=== PATIENT | female | born 1990 | race Caucasian/White ===

== ENCOUNTER 2016-12-29 02:58 | Inpatient (IN) | payer BC ==
[2016-12-29] MEDS: Lactated Ringers 1,000 ML IV SCH ×3 (03:20→05:26)
[2016-12-29] MEDS ORDERED: Misoprostol 400 MCG (4 X 100 MCG TAB) RECTAL PRN (03:45)
[2016-12-29] MEDS ORDERED: Sodium Chloride 0.9% 10 ML Syringe FLUSH PRN ×2 (03:45→09:01)
[2016-12-29] MEDS ORDERED: Lactated Ringers 500 ML IV ONE (03:45)
[2016-12-29] MEDS ORDERED: Methylergonovine 0.2 MG/1 ML Amp IM PRN (03:45)
[2016-12-29] MEDS ORDERED: Lidocaine 1% 30 ML SDV INJECT PRN (03:45)
[2016-12-29] MEDS ORDERED: Carboprost Tromethamine 250 MCG/1 ML Amp IM PRN ×2 (03:45→09:01)
[2016-12-29] MEDS ORDERED: Ondansetron 4 MG/2 ML SDV IV PRN (03:45)
[2016-12-29] MEDS ORDERED: Oxytocin/Normal Saline 30 UNIT/500 ML BAG IV SCH (04:00)
--- NOTE | 2016-12-29 04:00 | PCM.LDHP ---
<Tiffany Khan - Last Filed: 12/29/16 03:51> L&D History of Present Illness - General Date of Service: 12/29/16 Admit Problem/Dx: Patient Status Order with Admit Dx/Problem 12/29/16 03:45 Patient Status [ADT] Routine Admission Diagnosis/Problem Admission Diagnosis/Problem Source of Information: Patient History Limitations: Reports: No limitations - History of Present Illness Introduction:: Jelena is a pleasant at 37 and 3 that presents 10 hours S/P membrane stripping. She did not some spotting post membrane stripping but denies SROM. Per chart review baby was vertex in clinic 12/28/16. Jelena reports contractions being severe enough to waker her up at approximately 0100 12/29/16. Her and her Eliecer drove to [place] at this time from their home [place] of [place]. She reports contractions about every 2 minutes and that they are about a 7 out 10 on the pain scale. SVE per unit nurse was 5/75/-2, posterior position. Timing/Duration: Reports: seconds: (contractions 80 seconds long every 2-3 minutes) Location, : Reports: Pelvic Severity: moderate Pain Score: 7 Associated Symptoms: Reports: vaginal bleeding (some spotting post membrane rupture). Denies: vaginal discharge, vaginal fluid - Related Data Allergies/Adverse Reactions: Allergies Allergy/AdvReac Type Severity Reaction Status Date / Time No Known Allergies Allergy Verified 12/29/16 04:04 Home Medications: Home Meds Ferrous Sulfate [Iron] 325 mg PO DAILY 11/20/15 [History] Pnv95/Iron Fum/Folic Acid [ Caplet] 1 tab PO DAILY 11/20/15 [History] Past Medical History HEENT History: Reports: Impaired vision, Other (see below) Other HEENT History: wears glasses Cardiovascular History: Reports: None Respiratory History: Reports: None Gastrointestinal History: Reports: None MS SQL DBA History: Reports: , Other (see below) : 3 Para: 2 LMP (Approximate): Other OB/BYN History: hx BV Musculoskeletal History: Reports: None Neurological History: Reports: None Psychiatric History: Reports: None Endocrine/Metabolic History: Reports: None Hematologic History: Reports: Anemia Dermatologic History: Reports: Other (see below) Other Dermatologic History: breast biopsy - Infectious Disease History Infectious Disease History: Reports: Chicken pox - Past Surgical History Cardiovascular Surgical History: Reports: None GI Surgical History: Reports: None Female Surgical History: Reports: Breast biopsy (benign, also had an axilla biopsy) Social & Family History - Family History Family Medical History: Noncontributory Musculoskeletal: Reports: Osteoporosis (mother) Endocrine/Metabolic: Reports: Diabetes, type II (MGF) Oncologic: Reports: Breast (MGM and PGM), Prostate (PGF) - Tobacco Use Smoking Status *Q: Never Smoker Second Hand Smoke Exposure: No - Caffeine Use Caffeine Use: Reports: None - Alcohol Use Alcohol Use History: No - Recreational Drug Use Recreational Drug Use: No - Living Situation & Occupation Living situation: Reports: Social History Comment: in February 2012. [place] [place] 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 He is from [place] [place] She is from [place] and they met at a wedding in [place]. His mother is IVANA in [place] [place]he knows Romina from [employer] in [place] They are delighted to be . Both nonsmokers. No alcohol or drug abuse. [facility], and perhaps some of her OB visits. [facility] 06-10-12. Update: Melissa Orellana born 01[birth year]17. [facility]. Update: Melissa Orellana born: [birth year]. b. 07-04-16 Expecting next child: 01-02-17 [facility] H&P Review of Systems - Review of Systems: Review Of Systems: See Below General: Denies: fever, chills HEENT: Reports: no symptoms Pulmonary: Denies: Shortness of Breath, Wheezing, Cough Cardiovascular: Reports: no symptoms. Denies: chest pain Gastrointestinal: Denies: Abdominal pain (Other than contractions), Nausea, Vomiting Genitourinary: Reports: no symptoms Musculoskeletal: Reports: no symptoms Skin: Reports: no symptoms Psychiatric: Reports: no symptoms Neurological: Reports: No Symptoms Hematologic/Lymphatic: Reports: no symptoms Immunologic: Reports: no symptoms L&D Exam - Exam Exam: See Below - Vital Signs Weight: 68.492 kg - OB Specific Contraction Intensity: Moderate movement: active heart tones: present heart tones per min: 140 Heart Rate (FHR) Variability: Moderate (6-25 bmp) - Exam General: alert, oriented, cooperative HEENT: Conjunctiva clear, Mucosa moist & pink, Pupils equal Neck: supple Lungs: Clear to auscultation, Normal respiratory effort Cardiovascular: regular rate, regular rhythm Abdomen: normal bowel sounds, soft Rectal Exam: Deferred Genitourinary: Deferred Back Exam: normal inspection Extremities: normal inspection. No: edema Skin: warm, dry, intact Psychiatric: alert, normal affect - Patient Data Lab Results last 24 hrs: Laboratory Results - last 24 hr 12/29/16 Range/Units 03:20 WBC 15.5 H (5.0-10.0) 10^3/uL RBC 3.95 L (4.2-5.4) 10^6/uL Hgb 11.9 L (12.0-16.0) g/dL Hct 34.9 L (37.0-47.0) % MCV 88.4 (80-100) fL MCH 30.1 (27.0-34.0) pg MCHC 34.1 (33.0-35.0) g/dL Plt Count 189 (150-450) 10^3/uL Result Diagrams: 12/29/16 03:20 - Problem List (1) History of chicken pox SNOMED Code(s): 880721996 ICD Code: Z86.19 - PERSONAL HISTORY OF OTHER INFECTIOUS AND PARASITIC DISEASES Status: Acute Current Visit: Yes (2) SNOMED Code(s): 63701497 ICD Code: Z33.1 - STATE, INCIDENTAL Status: Acute Current Visit : Yes Qualifiers: Weeks of gestation: 39 weeks Qualified Code(s): Z3A.39 - 39 weeks gestation of (3) Blood type A- SNOMED Code(s): 299180469 ICD Code: Z67.11 - TYPE A BLOOD, RH NEGATIVE Status: Acute Current Visit : No (4) Rubella immune SNOMED Code(s): 642595431 ICD Code: Z78.9 - OTHER SPECIFIED HEALTH STATUS Status: Acute Current Visit: No Problem List Initiated/Reviewed/Updated: Yes Orders Last 24hrs: Active Orders 24 hr Category Date Time Status Patient Status [ADT] Routine ADT 12/29/16 03:45 Ordered Communication Order [RC] ASDIRECTED Care 12/29/16 03:45 Ordered Heart Tones [RC] PER UNIT ROUTINE Care 12/29/16 03:45 Ordered Notify Provider Vital Signs OB [RC] ASDIRECTED Care 12/29/16 03:45 Ordered Notify Provider [RC] PRN Care 12/29/16 03:45 Ordered Pump Management, Intrathecal [RC] ASDIRECTED Care 12/29/16 03:45 Ordered Up ad Shannan [RC] ASDIRECTED Care 12/29/16 03:45 Ordered Vital Signs [RC] PER UNIT ROUTINE Care 12/29/16 03:45 Ordered Acetaminophen [Tylenol] Med 12/29/16 03:45 Ordered 650 mg PO Q4H PRN Carboprost Tromethamine [Hemabate DS] Med 12/29/16 03:45 Ordered 250 mcg IM ASDIRECTED PRN Lactated Ringers @ 125 MLS/HR(1000ml) Med 12/29/16 03:45 Ordered Lactated Ringers [Ringers, Lactated] 1,000 ml IV ASDIRECTED Lactated Ringers [Ringers, Lactated] 500 ml Med 12/29/16 03:45 Ordered IV .BOLUS Lidocaine 1% [Xylocaine-MPF 1%] Med 12/29/16 03:45 Ordered 10 ml INJECT ASDIRECTED PRN Methylergonovine [Methergine] Med 12/29/16 03:45 Ordered 0.2 mg IM ASDIRECTED PRN Misoprostol [Cytotec] Med 12/29/16 03:45 Ordered 800 mcg RECTAL ASDIRECTED PRN Ondansetron [Zofran] Med 12/29/16 03:45 Ordered 4 mg IV Q4H PRN Oxytocin/Normal Saline [Pitocin in NS 30 UNIT/500 ML] Med 12/29/16 04:00 Ordered 30 unit in 500 ml IV TITRATE Sodium Chloride 0.9% [Saline Flush] Med 12/29/16 03:45 Ordered 10 ml FLUSH ASDIRECTED PRN Saline Lock Insert [OM.PC] Routine Oth 12/29/16 03:45 Ordered Resuscitation Status Routine Resus Stat 12/29/16 03:45 Ordered Medication Orders Acetaminophen (Tylenol) 650 mg PO Q4H PRN PRN Reason: Pain (Mild 1-3) and fever Assessment/Plan Comment:: 1. Normal intrapartum cares per unit protocol, 2. Intrathecal PRN 3. AROM if needed <Christen Aragon - Last Filed: 12/29/16 07:59> L&D History of Present Illness - General Admit Problem/Dx: Patient Status Order with Admit Dx/Problem 12/29/16 03:45 Patient Status [ADT] Routine Admission Diagnosis/Problem Admission Diagnosis/Problem L&D Exam - Vital Signs Vital Signs: Last Vital Signs Temp 36.8 C 12/29/16 07:10 Pulse 80 12/29/16 07:20 Resp 16 12/29/16 07:01 BP 121/71 12/29/16 07:18 Pulse Ox 97 12/29/16 07:20 - Patient Data Lab Results last 24 hrs: Laboratory Results - last 24 hr 12/29/16 Range/Units 03:20 WBC 15.5 H (5.0-10.0) 10^3/uL RBC 3.95 L (4.2-5.4) 10^6/uL Hgb 11.9 L (12.0-16.0) g/dL Hct 34.9 L (37.0-47.0) % MCV 88.4 (80-100) fL MCH 30.1 (27.0-34.0) pg MCHC 34.1 (33.0-35.0) g/dL Plt Count 189 (150-450) 10^3/uL Result Diagrams: 12/29/16 03:20 Orders Last 24hrs: Active Orders 24 hr Category Date Time Status Patient Status [ADT] Routine ADT 12/29/16 03:45 Active Communication Order [RC] ASDIRECTED Care 12/29/16 03:45 Active Notify Provider Vital Signs OB [RC] ASDIRECTED Care 12/29/16 03:45 Active Notify Provider [RC] PRN Care 12/29/16 03:45 Active Pump Management, Intrathecal [RC] ASDIRECTED Care 12/29/16 03:45 Active Up ad Shannan [RC] ASDIRECTED Care 12/29/16 03:45 Active Vital Signs [RC] PER UNIT ROUTINE Care 12/29/16 03:45 Active Acetaminophen [Tylenol] Med 12/29/16 03:45 Active 650 mg PO Q4H PRN Carboprost Tromethamine [Hemabate DS] Med 12/29/16 03:45 Active 250 mcg IM ASDIRECTED PRN Lactated Ringers [Ringers, Lactated] 1,000 ml Med 12/29/16 03:45 Active IV ASDIRECTED Lidocaine 1% [Xylocaine-MPF 1%] Med 12/29/16 03:45 Active 10 ml INJECT ASDIRECTED PRN Methylergonovine [Methergine] Med 12/29/16 03:45 Active 0.2 mg IM ASDIRECTED PRN Misoprostol [Cytotec] Med 12/29/16 03:45 Active 800 mcg RECTAL ASDIRECTED PRN Ondansetron [Zofran] Med 12/29/16 03:45 Active 4 mg IV Q4H PRN Oxytocin/Normal Saline [Pitocin in NS 30 UNIT/500 ML] Med 12/29/16 04:00 Active 30 unit in 500 ml IV TITRATE Sodium Chloride 0.9% [Saline Flush] Med 12/29/16 03:45 Active 10 ml FLUSH ASDIRECTED PRN Saline Lock Insert [OM.PC] Routine Oth 12/29/16 03:45 Ordered Resuscitation Status Routine Resus Stat 12/29/16 03:45 Ordered Medication Orders Acetaminophen (Tylenol) 650 mg PO Q4H PRN PRN Reason: Pain (Mild 1-3) and fever Carboprost Tromethamine (Hemabate Ds) 250 mcg IM ASDIRECTED PRN PRN Reason: HEMORRHAGE Lactated Ringer's (Ringers, Lactated) 1,000 mls @ 125 mls/hr IV ASDIRECTED CAPO Last Admin: 12/29/16 05:26 Dose: 125 mls/hr Infusion: 12/29/16 05:26 Dose: 125 mls/hr Admin: 12/29/16 04:39 Dose: 125 mls/hr Infusion: 12/29/16 04:39 Dose: 125 mls/hr Admin: 12/29/16 03:20 Dose: 125 mls/hr Oxytocin/Sodium Chloride (Pitocin In Ns 30 Unit/500 Ml) 30 unit in 500 mls @ 500 mls/hr IV TITRATE CAPO; 500 MUNITS/MIN PRN Reason: Protocol Lidocaine HCl (Xylocaine-Mpf 1%) 10 ml INJECT ASDIRECTED PRN PRN Reason: Perineal Repair Methylergonovine Maleate (Methergine) 0.2 mg IM ASDIRECTED PRN PRN Reason: Hemorrhage Misoprostol (Cytotec) 800 mcg RECTAL ASDIRECTED PRN PRN Reason: Hemorrhage Ondansetron HCl (Zofran) 4 mg IV Q4H PRN PRN Reason: Nausea/Vomiting Last Admin: 12/29/16 04:39 Dose: 4 mg Sodium Chloride (Saline Flush) 10 ml FLUSH ASDIRECTED PRN PRN Reason: Keep Vein Open Assessment/Plan Comment:: Agree with student assessment and plan. Anticipate vaginal delivery. Patient is also Rh negative so will need to have Rhogam Christen Aragon MD
--- NOTE | 2016-12-29 09:00 | PCM.DEL ---
L & D Note - General Info Date of Service: 12/29/16 Mother's Due Date: 01/02/17 - Delivery Note Labor: spontaneous, augmented by ARM Delivery Outcome: Livebirth Delivery Method: Spontaneous Vaginal Delivery Presentation: Left Occiput Anterior (ELSA) Nuchal cord: none Anesthesia Type: Intrathecal Amniotic Fluid Description: Clear Episiotomy Type: None Laceration: none Placenta: intact, spontaneous Estimated blood loss: 175 Resuscitation needed: No [place]: stimulated, warmed Score 1 min: 7 Score 5 min: 8 Delivery Comments (Free Text/Narrative):: 26-year-old female, now , presented at 39w3d with contractions that work her from sleep around 0100 today. Her contractions continued to increase in frequency and intensity. Membranes were artificially ruptured around 0700 to augment labor. She progressed to complete dilation. After pushing for about 20 minutes, she delivered a viable male infant, weighing 7 lb 8 oz, with Apgars of 7 and 8 at 1 and 5 minutes respectively. Placenta delivered spontaneously a short time later. Placenta appeared to be intact, and a 3 vessel cord was noted. Perineum was noted to be intact. Uterus was firm, and bleeding was noted to be appropriate. There were no complications. - Patient Data Vitals - most recent: Last Vital Signs Temp 36.8 C 12/29/16 07:10 Pulse 72 12/29/16 07:46 Resp 16 12/29/16 07:01 BP 125/68 12/29/16 07:46 Pulse Ox 97 12/29/16 07:30 Weight - most recent: 68.492 kg I&O - last 24 hours: Intake & Output 12/28/16 12/29/16 12/29/16 22:59 06:59 14:59 Intake Total 1999 Balance 1999 Lab Results last 24 hrs: Laboratory Results - last 24 hr 12/29/16 Range/Units 03:20 WBC 15.5 H (5.0-10.0) 10^3/uL RBC 3.95 L (4.2-5.4) 10^6/uL Hgb 11.9 L (12.0-16.0) g/dL Hct 34.9 L (37.0-47.0) % MCV 88.4 (80-100) fL MCH 30.1 (27.0-34.0) pg MCHC 34.1 (33.0-35.0) g/dL Plt Count 189 (150-450) 10^3/uL Med Orders - Current: Current Medications Acetaminophen (Tylenol) 650 mg PO Q4H PRN PRN Reason: Pain (Mild 1-3) and fever Carboprost Tromethamine (Hemabate Ds) 250 mcg IM ASDIRECTED PRN PRN Reason: HEMORRHAGE Lactated Ringer's (Ringers, Lactated) 1,000 mls @ 125 mls/hr IV ASDIRECTED CAPO Last Admin: 12/29/16 05:26 Dose: 125 mls/hr Oxytocin/Sodium Chloride (Pitocin In Ns 30 Unit/500 Ml) 30 unit in 500 mls @ 500 mls/hr IV TITRATE CAPO; 500 MUNITS/MIN PRN Reason: Protocol Last Admin: 12/29/16 08:55 Dose: 500 munits/min, 500 mls/hr Lidocaine HCl (Xylocaine-Mpf 1%) 10 ml INJECT ASDIRECTED PRN PRN Reason: Perineal Repair Methylergonovine Maleate (Methergine) 0.2 mg IM ASDIRECTED PRN PRN Reason: Hemorrhage Misoprostol (Cytotec) 800 mcg RECTAL ASDIRECTED PRN PRN Reason: Hemorrhage Ondansetron HCl (Zofran) 4 mg IV Q4H PRN PRN Reason: Nausea/Vomiting Last Admin: 12/29/16 04:39 Dose: 4 mg Sodium Chloride (Saline Flush) 10 ml FLUSH ASDIRECTED PRN PRN Reason: Keep Vein Open Discontinued Medications Lactated Ringer's (Ringers, Lactated) 500 mls @ 999 mls/hr IV .BOLUS ONE Stop: 12/29/16 04:15 Last Admin: 12/29/16 06:19 Dose: Not Given - Problem List & Annotations (1) SNOMED Code(s): 33680465 Code(s): Z33.1 - STATE, INCIDENTAL Status: Acute Current Visit: Yes Qualifiers: Weeks of gestation: 39 weeks Qualified Code(s): Z3A.39 - 39 weeks gestation of (2) Vaginal delivery SNOMED Code(s): 541081617 Code(s): O80 - ENCOUNTER FOR FULL-TERM UNCOMPLICATED DELIVERY Status: Acute Current Visit: Yes (3) Blood type A- SNOMED Code(s): 193756856 Code(s): Z67.11 - TYPE A BLOOD, RH NEGATIVE Status: Acute Current Visit: No (4) Mother currently breast-feeding SNOMED Code(s): 611834923 Code(s): TFC0190 - Status: Acute Current Visit: No - Problem List Review Problem List Initiated/Reviewed/Updated: Yes - Assessment Assessment:: 26-year-old, now , status post normal spontaneous vaginal delivery - Plan Plan:: 1. Initiate routine cares 2. Patient plans to breastfeed 3. Anticipate discharge 12/31/16 Christen Aragon MD
[2016-12-29] MEDS ORDERED: Benzocaine/Menthol 20%-0.5% Spray 56 GM Canister TOP PRN (09:01)
[2016-12-29] MEDS ORDERED: Simethicone 80 MG Tab.Chew PO PRN (09:01)
[2016-12-29] MEDS: Docusate Sodium 100 MG Cap PO PRN ×2 (12:44→19:49)
[2016-12-29] MEDS: Ibuprofen 800 MG Tab PO PRN ×2 (12:45→23:48)
[2016-12-29] MEDS: Acetaminophen 325 MG Tab PO PRN (17:59)
[2016-12-30] MEDS: Acetaminophen 325 MG Tab PO PRN (05:36)
[2016-12-30] MEDS ORDERED: Prenatal Multivitamin with Calcium/Folic Acid/Iron Tab PO SCH (09:00)
[2016-12-30] MEDS: Docusate Sodium 100 MG Cap PO PRN (10:22)
--- NOTE | 2016-12-30 11:29 | PCM.DCSUM1 ---
[id number] Text/Narrative:: Jelena is a now that has had an uncomplicated hospital course. HPI Initial Comments: Jelena is a pleasant at 37 and 3 that presented on 12/29/16 10 hours S/P membrane stripping. She did not some spotting post membrane stripping but denies SROM. Per chart review baby was vertex in clinic 12/28/16. Her and her Eliecer will [place] to [place]. - Discharge Data Discharge Date: 12/30/16 Discharge Disposition: Home, Self-Care 01 Condition: Good - Discharge Diagnosis/Problem(s) (1) History of chicken pox SNOMED Code(s): 590552485 ICD Code: Z86.19 - PERSONAL HISTORY OF OTHER INFECTIOUS AND PARASITIC DISEASES Status: Acute Current Visit: Yes (2) SNOMED Code(s): 35744191 ICD Code: Z33.1 - STATE, INCIDENTAL Status: Acute Current Visit : Yes Qualifiers: Weeks of gestation: 39 weeks Qualified Code(s): Z3A.39 - 39 weeks gestation of (3) Blood type A- SNOMED Code(s): 696847613 ICD Code: Z67.11 - TYPE A BLOOD, RH NEGATIVE Status: Acute Current Visit : No (4) Rubella immune SNOMED Code(s): 002167190 ICD Code: Z78.9 - OTHER SPECIFIED HEALTH STATUS Status: Acute Current Visit: No (5) Vaginal delivery SNOMED Code(s): 599069543 ICD Code: O80 - ENCOUNTER FOR FULL-TERM UNCOMPLICATED DELIVERY Status: Acute Current Visit: Yes (6) Mother currently breast-feeding SNOMED Code(s): 422558756 ICD Code: RRC7849 - Status: Acute Current Visit: No - Patient Summary/Data Consults: Consultations 12/29/16 09:01 Consult to Retail Planning Manager [CONS] Routine - Patient Instructions Diet: Usual Diet as Tolerated Activity: Apply Ice, As Tolerated, No Strenuous Activities (pelvic rest for 6 weeks) Driving: May Drive Today Showering/Bathing: May Shower Notify Provider of: Fever, Increased Pain, Nausea and/or Vomiting - Discharge Plan Home Medications: Home Meds Ferrous Sulfate [Iron] 325 mg PO DAILY 11/20/15 [History] Pnv95/Iron Fum/Folic Acid [ Caplet] 1 tab PO DAILY 11/20/15 [History] Acetaminophen [Tylenol] 650 mg PO Q4H PRN #0 tablet 12/30/16 [Rx] Docusate Sodium [Colace] 100 mg PO BID PRN #0 cap 12/30/16 [Rx] Ibuprofen [IJD: Ibuprofen] 800 mg PO Q8H PRN #0 tablet 12/30/16 [Rx] Patient Handouts: , Home Care Instructions for Mom - General Info Date of Service: 12/30/16 Admission Dx/Problem (Free Text: Patient Status Order with Admit Dx/Problem (1) History of chicken pox SNOMED Code(s): 516111517 ICD Code: Z86.19 - PERSONAL HISTORY OF OTHER INFECTIOUS AND PARASITIC DISEASES Status: Acute Current Visit: Yes (2) SNOMED Code(s): 87861206 ICD Code: Z33.1 - STATE, INCIDENTAL Status: Acute Current Visit : Yes Qualifiers: Weeks of gestation: 39 weeks Qualified Code(s): Z3A.39 - 39 weeks gestation of (3) Blood type A- SNOMED Code(s): 340434187 ICD Code: Z67.11 - TYPE A BLOOD, RH NEGATIVE Status: Acute Current Visit : No (4) Rubella immune SNOMED Code(s): 040802128 ICD Code: Z78.9 - OTHER SPECIFIED HEALTH STATUS Status: Acute Current Visit: No Problem List Initiated/Reviewed/Updated: Yes Orders Last 24hrs: Subjective Update: Patient reports she has been doing well overnight, She has been able to get up and ambulate, urinate and pass gas. SHe has no questions, and reports that she does not believe her milk has come in quite yet but breast feeding has been going okay. She would like to be discharged to home today12/30/16. Functional Status: Reports: pain controlled, tolerating diet, ambulating, urinating - Review of Systems General: Reports: No Symptoms. Denies: Fever, Chills HEENT: Reports: no symptoms Pulmonary: Reports: no symptoms. Denies: shortness of breath, cough, wheezing Cardiovascular: Reports: No Symptoms. Denies: Edema Gastrointestinal: Reports: No symptoms. Denies: Nausea, Vomiting Genitourinary: Reports: no symptoms Musculoskeletal: Reports: no symptoms Skin: Reports: no symptoms Neurological: Reports: No Symptoms Psychiatric: Reports: no symptoms - Patient Data Vitals - Most Recent: Last Vital Signs Temp 98 F 12/29/16 20:00 Pulse 69 12/29/16 20:00 Resp 20 12/29/16 20:00 BP 113/59 L 12/29/16 20:00 Pulse Ox 98 12/29/16 20:00 Weight - Most Recent: 68.492 kg I&O - Last 24 hours: Intake & Output 12/29/16 12/30/16 12/30/16 22:59 06:59 14:59 Intake Total 1 Balance 1 Med Orders - Current: Current Medications Acetaminophen (Tylenol) 650 mg PO Q4H PRN PRN Reason: Pain (Mild 1-3) and fever Last Admin: 12/30/16 05:36 Dose: 650 mg Benzocaine/Menthol (Dermoplast Pain Relief [place]) 0 gm TOP Q4H PRN PRN Reason: Perineal comfort measures Last Admin: 12/29/16 12:44 Dose: 1 spr Carboprost Tromethamine (Hemabate Ds) 250 mcg IM ASDIRECTED PRN PRN Reason: HEMORRHAGE Carboprost Tromethamine (Hemabate Ds) 250 mcg IM ASDIRECTED PRN PRN Reason: Excessive vaginal bleeding Docusate Sodium (Colace) 100 mg PO BID PRN PRN Reason: Constipation Last Admin: 12/30/16 10:22 Dose: 100 mg Oxytocin/Sodium Chloride (Pitocin In Ns 30 Unit/500 Ml) 30 unit in 500 mls @ 500 mls/hr IV TITRATE CAPO; 500 MUNITS/MIN PRN Reason: Protocol Last Titration: 12/29/16 12:14 Dose: Infused Ibuprofen (Motrin) 800 mg PO Q8H PRN PRN Reason: Mild Pain or Fever Last Admin: 12/29/16 23:48 Dose: 800 mg Methylergonovine Maleate (Methergine) 0.2 mg IM ASDIRECTED PRN PRN Reason: Hemorrhage Misoprostol (Cytotec) 800 mcg RECTAL ASDIRECTED PRN PRN Reason: Hemorrhage Prenat Multivit/Plaster Foreman/Iron/Folic Ac ( Plus Iron) 1 each PO DAILY CAPO Last Admin: 12/30/16 10:22 Dose: 1 each Simethicone (Simethicone) 80 mg PO Q4H PRN PRN Reason: Gas Sodium Chloride (Saline Flush) 10 ml FLUSH ASDIRECTED PRN PRN Reason: Keep Vein Open Sodium Chloride (Saline Flush) 10 ml FLUSH ASDIRECTED PRN PRN Reason: Keep Vein Open Discontinued Medications Lactated Ringer's (Ringers, Lactated) 500 mls @ 999 mls/hr IV .BOLUS ONE Stop: 12/29/16 04:15 Last Admin: 12/29/16 06:19 Dose: Not Given Lactated Ringer's (Ringers, Lactated) 1,000 mls @ 125 mls/hr IV ASDIRECTED CAPO Last Admin: 12/29/16 05:26 Dose: 125 mls/hr Lidocaine HCl (Xylocaine-Mpf 1%) 10 ml INJECT ASDIRECTED PRN PRN Reason: Perineal Repair Ondansetron HCl (Zofran) 4 mg IV Q4H PRN PRN Reason: Nausea/Vomiting Last Admin: 12/29/16 04:39 Dose: 4 mg - Exam General: Reports: alert, oriented, cooperative HEENT: Reports: Pupils equal, EOMI, Mucous membr. moist/pink Lungs: Reports: Clear to auscultation, Normal respiratory effort Cardiovascular: Reports: Regular Rate, Regular Rhythm Abdomen: Reports: bowel sounds present, soft, no distension (Female) Exam: Deferred Rectal (Female) Exam: Deferred Back Exam: Reports: normal inspection, full range of motion Extremities: Reports: no edema, normal pulses, no calf tenderness. Denies: edema Skin: Reports: warm, dry, intact Wound/Incisions: Reports: healing well Neurological: Reports: no new focal deficit Psy/Mental Status: Reports: alert, normal affect, normal mood *Q Meaningful Use (DIS) - VTE *Q VTE Criteria *Q: - Stroke *Q Stroke Criteria *Q: - AMI *Q AMI Criteria *Q: <Christen Aragon - Last Filed: 12/30/16 11:50> Discharge Summary - Patient Summary/Data Consults: Consultations 12/29/16 09:01 Consult to Retail Planning Manager [CONS] Routine - Discharge Summary/Plan Comment Discharge Summary/Plan Comment: Agree with student assessment and plan. Patient is doing very well. No concerns. Will need to follow-up with Dr. Rowland or myself in 6 weeks for visit. Christen Aragon MD - Patient Data Vitals - Most Recent: Last Vital Signs Temp 36.6 C 12/29/16 20:00 Pulse 69 12/29/16 20:00 Resp 20 12/29/16 20:00 BP 113/59 L 12/29/16 20:00 Pulse Ox 98 12/29/16 20:00 I&O - Last 24 hours: Intake & Output 12/29/16 12/30/16 12/30/16 22:59 06:59 14:59 Intake Total 1 Balance 1 Med Orders - Current: Current Medications Acetaminophen (Tylenol) 650 mg PO Q4H PRN PRN Reason: Pain (Mild 1-3) and fever Last Admin: 12/30/16 05:36 Dose: 650 mg Benzocaine/Menthol (Dermoplast Pain Relief [place]) 0 gm TOP Q4H PRN PRN Reason: Perineal comfort measures Last Admin: 12/29/16 12:44 Dose: 1 spr Carboprost Tromethamine (Hemabate Ds) 250 mcg IM ASDIRECTED PRN PRN Reason: HEMORRHAGE Carboprost Tromethamine (Hemabate Ds) 250 mcg IM ASDIRECTED PRN PRN Reason: Excessive vaginal bleeding Docusate Sodium (Colace) 100 mg PO BID PRN PRN Reason: Constipation Last Admin: 12/30/16 10:22 Dose: 100 mg Oxytocin/Sodium Chloride (Pitocin In Ns 30 Unit/500 Ml) 30 unit in 500 mls @ 500 mls/hr IV TITRATE CAPO; 500 MUNITS/MIN PRN Reason: Protocol Last Titration: 12/29/16 12:14 Dose: Infused Ibuprofen (Motrin) 800 mg PO Q8H PRN PRN Reason: Mild Pain or Fever Last Admin: 12/29/16 23:48 Dose: 800 mg Methylergonovine Maleate (Methergine) 0.2 mg IM ASDIRECTED PRN PRN Reason: Hemorrhage Misoprostol (Cytotec) 800 mcg RECTAL ASDIRECTED PRN PRN Reason: Hemorrhage Prenat Multivit/[place]/Iron/Folic Ac ( Plus Iron) 1 each PO DAILY CAPO Last Admin: 12/30/16 10:22 Dose: 1 each Simethicone (Simethicone) 80 mg PO Q4H PRN PRN Reason: Gas Sodium Chloride (Saline Flush) 10 ml FLUSH ASDIRECTED PRN PRN Reason: Keep Vein Open Sodium Chloride (Saline Flush) 10 ml FLUSH ASDIRECTED PRN PRN Reason: Keep Vein Open Discontinued Medications Lactated Ringer's (Ringers, Lactated) 500 mls @ 999 mls/hr IV .BOLUS ONE Stop: 12/29/16 04:15 Last Admin: 12/29/16 06:19 Dose: Not Given Lactated Ringer's (Ringers, Lactated) 1,000 mls @ 125 mls/hr IV ASDIRECTED CAPO Last Admin: 12/29/16 05:26 Dose: 125 mls/hr Lidocaine HCl (Xylocaine-Mpf 1%) 10 ml INJECT ASDIRECTED PRN PRN Reason: Perineal Repair Ondansetron HCl (Zofran) 4 mg IV Q4H PRN PRN Reason: Nausea/Vomiting Last Admin: 12/29/16 04:39 Dose: 4 mg *Q Meaningful Use (DIS) - VTE *Q VTE Criteria *Q: - Stroke *Q Stroke Criteria *Q: - AMI *Q AMI Criteria *Q:
[2016-12-30 16:56] VITALS: BP 110/65
== END 2016-12-30 14:20 | disposition home or self-care (01) | DRG 560 ==
LOC: DL.OBCHECK 02:58 → DL.OB 03:19 → INTOOBSV 03:45 → OBSVTOIN 03:45 → DL.OB 08:44 → OBSVTOIN 08:44
PROVIDERS: ADMIT Family Medicine; ATTEND Family Medicine
PROC: 10E0XZZ Delivery of Products of Conception, External Approach (ICD-10-PCS; principal; 2016-12-29)
PROC: 10907ZC Drainage of Amniotic Fluid, Therapeutic from Products of Conception, Via Natural or Artificial Opening (ICD-10-PCS; 2016-12-29)
PROC: 00HU33Z Insertion of Infusion Device into Spinal Canal, Percutaneous Approach (ICD-10-PCS; 2016-12-29)
PROC: 3E0R3CZ (ICD-10-PCS; 2016-12-29)
DX: O99.02 Anemia complicating childbirth (principal); D64.9 Anemia, unspecified; Z3A.39 39 weeks gestation of pregnancy; Z37.0 Single live birth
CPT/HCPCS: 36415; 85027; 85461; 86850; 86900; 86901; A9270-GY; J2405; J2590; J2790; J7120

== ENCOUNTER 2019-11-21 11:21 | Inpatient (IN) | payer BC ==
[2019-11-21] MEDS ORDERED: Tranexamic Acid 1,000 MG in Sodium Chloride 0.9% 100 ML IV PRN (21:04)
[2019-11-21] MEDS ORDERED: Lactated Ringers 1,000 ML IV ONE (21:04)
[2019-11-21] MEDS ORDERED: Misoprostol 400 MCG (4 X 100 MCG TAB) RECTAL PRN (21:04)
[2019-11-21] MEDS ORDERED: Carboprost Tromethamine 250 MCG/1 ML Amp IM PRN (21:04)
[2019-11-21] MEDS ORDERED: Ondansetron 4 MG/2 ML SDV IVPUSH PRN (21:04)
[2019-11-21] MEDS ORDERED: Methylergonovine 0.2 MG/1 ML Amp IM PRN (21:04)
[2019-11-21] MEDS ORDERED: Sodium Chloride 0.9% 10 ML Syringe FLUSH PRN (21:04)
[2019-11-21] MEDS ORDERED: Lidocaine 1% 30 ML SDV INJECT PRN (21:04)
[2019-11-21] MEDS ORDERED: Oxytocin/Normal Saline 30 UNIT/500 ML BAG IV SCH (21:15)
[2019-11-21] MEDS ORDERED: hydrOXYzine HCl 25 MG Tab PO PRN (22:27)
--- NOTE | 2019-11-22 08:41 | PCM.LDHP ---
L&D History of Present Illness - General Date of Service: 11/21/19 (admit H&P) Admit Problem/Dx: Patient Status Order with Admit Dx/Problem 11/21/19 21:05 Patient Status [ADT] Routine Admission Diagnosis/Problem Admission Diagnosis/Problem Labor established Source of Information: Patient, Family, Old Records, Provider, Other ( records, EPIC episode. ) History Limitations: Reports: No Limitations - History of Present Illness Introduction:: Delightful 29yo WF @ 39w6d in with onset cxns every 4-5 minutes. no bleeding or LOF. seen in clinic Saturday with cervix 2cm. see notes for details. expecting a girl this time. no other new concerns or sx of pre-eclampsia. GBS negative. blood type A negative. hmb Timing/Duration: Reports: minutes: (4-5), gradual onset Location, : Reports: Uterus Severity: Moderate (mild to moderate) Improves with: Reports: Movement Worsens with: Reports: None - Related Data Allergies/Adverse Reactions: Allergies Allergy/AdvReac Type Severity Reaction Status Date / Time No Known Allergies Allergy Verified 11/21/19 20:32 Home Medications: Home Meds Ferrous Sulfate [Iron] 325 mg PO DAILY 11/20/15 [History] Pnv95/Iron Fum/Folic Acid [ Caplet] 1 tab PO DAILY 11/20/15 [History] Past Medical History HEENT History: Reports: Impaired Vision Other HEENT History: wears glasses Cardiovascular History: Reports: None Respiratory History: Reports: None Gastrointestinal History: Reports: None Genitourinary History: Reports: None 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: Other OB/BYN History: hx BV Musculoskeletal History: Reports: None Neurological History: Reports: None Psychiatric History: Reports: None Endocrine/Metabolic History: Reports: None Hematologic History: Reports: Anemia Immunologic History: Reports: None Oncologic (Cancer) History: Reports: None Dermatologic History: Reports: None Other Dermatologic History: breast biopsy - Infectious Disease History Infectious Disease History: Reports: Chicken Pox - Past Surgical History Head Surgeries/Procedures: Reports: None Cardiovascular Surgical History: Reports: None Respiratory Surgical History: Reports: None GI Surgical History: Reports: None Female Surgical History: Reports: Breast Biopsy (fibroadenoma) Endocrine Surgical History: Reports: None Neurological Surgical History: Reports: None Musculoskeletal Surgical History: Reports: None Oncologic Surgical History: Reports: None Dermatological Surgical History: Reports: None Social & Family History - Family History Family Medical History: Noncontributory Musculoskeletal: Reports: Osteoporosis Endocrine/Metabolic: Reports: Diabetes, type II Oncologic: Reports: Breast, Prostate - Tobacco Use Smoking Status *Q: Never Smoker Second Hand Smoke Exposure: No - Caffeine Use Caffeine Use: Reports: None - Alcohol Use Alcohol Use History: No Alcohol Use in Last Twelve Months: No - Recreational Drug Use Recreational Drug Use: No - Sexual History Sexual History: Reports: Sexually Active, Single Partner, Vaginal [place] - Living Situation & Occupation Living situation: Reports: , with Family Social History Comment: Lives with Eliecer, children Rivers 6, Eve 4, Shadi 2. 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 b H&P Review of Systems - Review of Systems: Review Of Systems: Comprehensive ROS is negative, except as noted in HPI. L&D Exam - Exam Exam: See Below - Vital Signs Vital Signs: Last Vital Signs Temp 98.7 F 11/22/19 00:30 Pulse 90 11/22/19 00:30 Resp 16 11/22/19 00:30 BP 113/63 11/22/19 00:30 Pulse Ox Weight: 157 lb - OB Specific Contraction Duration (sec): 90-100 Contraction Frequency (min): 9-10 Contraction Intensity: Mild Movement: Active Heart Tones: Present Heart Tones per Min: 140 Heart Rate (FHR) Variability: Moderate (6-25 bmp) Presentation: Right Occiput Anterior (ARTUR) - Phillips Score Phillips Score Cervix Position: Posterior Phillips Score Consistency: Soft Phillips Score Effacement: >80% Phillips Score Dilation: 3-4 cm Phillips Score Infant's Station: -3 Phillips Score Total: 7 - Exam General: Alert, Oriented HEENT: Conjunctiva Clear, EOMI, Hearing Intact, Nares Patent, Pupils Equal, Pupils Reactive Neck: Trachea Midline Lungs: Clear to Auscultation, Normal Respiratory Effort Cardiovascular: Regular Rate, Regular Rhythm GI/Abdominal Exam: Normal Bowel Sounds, Soft, Non-Tender, No Organomegaly, No Distention, No Abnormal Bruit, No Mass, Pelvis Stable Rectal Exam: Normal Exam Genitourinary: Normal external exam, Normal bimanual exam, Cervical dilitation, Other (exam on admit as noted: 4+cm, BOWI, posterior, -2/-3, 80%) Back Exam: Normal Inspection, Full Range of Motion Extremities: Normal Inspection, Normal Range of Motion, Non-Tender, No Pedal Edema, Normal Capillary Refill Skin: Warm, Dry, Intact Neurological: Cranial Nerves Intact, Reflexes Equal Bilateral Psychiatric: Alert, Normal Affect, Normal Mood - Patient Data Lab Results Last 24 hrs: ordered and pending - Problem List (1) Term SNOMED Code(s): 97358943 ICD Code: Z34.90 - ENCNTR FOR SUPRVSN OF NORMAL , UNSP, UNSP TRIMESTER Status: Acute Current Visit: Yes (2) Labor established SNOMED Code(s): 56536301 ICD Code: ZJQ5856 - Status: Acute Current Visit: Yes (3) Group B Streptococcus not isolated SNOMED Code(s): 796416679 ICD Code: RVQ6121 - Status: Acute Current Visit: Yes (4) Blood type A- SNOMED Code(s): 504082955 ICD Code: Z67.11 - TYPE A BLOOD, RH NEGATIVE Status: Acute Current Visit : No (5) Rubella immune SNOMED Code(s): 553851549 ICD Code: Z78.9 - OTHER SPECIFIED HEALTH STATUS Status: Acute Current Visit: No Problem List Initiated/Reviewed/Updated: Yes Orders Last 24hrs: Active Orders 24 hr Category Date Time Status Patient Status [ADT] Routine ADT 11/21/19 21:05 Active Communication Order [RC] ASDIRECTED Care 11/21/19 21:05 Active Notify Provider Vital Signs OB [RC] ASDIRECTED Care 11/21/19 21:05 Active Notify Provider [RC] PRN Care 11/21/19 21:05 Active POC Labs [RC] ASDIRECTED Care 11/21/19 21:05 Active Pump Management, Intrathecal [RC] ASDIRECTED Care 11/21/19 21:08 Active Up ad Shannan [RC] ASDIRECTED Care 11/21/19 21:05 Active Vital Signs [RC] PER UNIT ROUTINE Care 11/21/19 21:05 Active CBC W/O DIFF,HEMOGRAM [HEME] Routine Lab 11/21/19 21:05 Ordered Acetaminophen [Tylenol] Med 11/21/19 21:04 Active 650 mg PO Q4H PRN Carboprost Tromethamine [Hemabate DS] Med 11/21/19 21:04 Active 250 mcg IM ASDIRECTED PRN Lactated Ringers [Ringers, Lactated] 1,000 ml Med 11/21/19 21:15 Active IV ASDIRECTED Lidocaine 1% [Xylocaine-MPF 1%] Med 11/21/19 21:04 Active 30 ml INJECT ASDIRECTED PRN Methylergonovine [Methergine] Med 11/21/19 21:04 Active 0.2 mg IM ASDIRECTED PRN Ondansetron [Zofran] Med 11/21/19 21:04 Active 4 mg IVPUSH Q4H PRN Oxytocin/Normal Saline [Pitocin in NS 30 UNIT/500 ML] Med 11/21/19 21:15 Active 30 unit in 500 ml IV TITRATE Sodium Chloride 0.9% [Saline Flush] Med 11/21/19 21:04 Active 10 ml FLUSH ASDIRECTED PRN Tranexamic Acid [Cyklokapron] 1,000 mg Med 11/21/19 21:04 Active Sodium Chloride 0.9% [Normal Saline] 100 ml IV ONETIME hydrOXYzine HCL [Atarax] Med 11/21/19 22:27 Active 50 mg PO BEDTIME PRN miSOPROStoL [Cytotec] Med 11/21/19 21:04 Active 800 mcg RECTAL ASDIRECTED PRN Saline Lock Insert [OM.PC] Routine Oth 11/21/19 21:05 Ordered Resuscitation Status Routine Resus Stat 11/21/19 21:04 Ordered Medication Orders Acetaminophen (Tylenol) 650 mg PO Q4H PRN PRN Reason: Pain (Mild 1-3) and fever Carboprost Tromethamine (Hemabate Ds) 250 mcg IM ASDIRECTED PRN PRN Reason: HEMORRHAGE Hydroxyzine HCl (Atarax) 50 mg PO BEDTIME PRN PRN Reason: Sleep Lactated Ringer's (Ringers, Lactated) 1,000 mls @ 125 mls/hr IV ASDIRECTED CAPO Oxytocin/Sodium Chloride (Pitocin In Ns 30 Unit/500 Ml) 30 unit in 500 mls @ 2 mls/hr IV TITRATE CAPO; Protocol Tranexamic Acid 1,000 mg/ (Sodium Chloride) 110 mls @ 660 mls/hr IV ONETIME PRN PRN Reason: Bleeding Lidocaine HCl (Xylocaine-Mpf 1%) 30 ml INJECT ASDIRECTED PRN PRN Reason: Perineal Repair Methylergonovine Maleate (Methergine) 0.2 mg IM ASDIRECTED PRN PRN Reason: Hemorrhage Misoprostol (Cytotec) 800 mcg RECTAL ASDIRECTED PRN PRN Reason: Hemorrhage Ondansetron HCl (Zofran) 4 mg IVPUSH Q4H PRN PRN Reason: Nausea/Vomiting Sodium Chloride (Saline Flush) 10 ml FLUSH ASDIRECTED PRN PRN Reason: Keep Vein Open Assessment/Plan Comment:: Assessment: 29yo WF @ 39w6d labor established GBS negative Rubella immune A negative blood type reactive NST Plan: admit monitor closely Pt planning intrathecal when in more active labor. all questions answered. anticipate vaginal delivery. plans to breast feed and room in as much as possible. b
[2019-11-22] MEDS: Lactated Ringers 1,000 ML IV SCH ×3 (08:45→11:01)
--- NOTE | 2019-11-22 09:08 | PCM.SN ---
- Free Text/Narrative Note: DOS: 11-22-2019 Jelena is a delightful 29yo now 40w0d who was admitted last night with onset of labor continues with cxns every 4-8 minutes, mild to moderate. baby active. no bleeding or LOF noted slept on and off during night. FHT remain reassuring. On exam today cervix 7-8, posterior, -2 st BOWI, AROM carried out with return of clear fluid Shortly after AROM, contractions noted to be stronger already per patient report She wishes to proceed with intrathecal. PLT [phone] cxn with early decel--likely some head compression. continue with plan. hmb
[2019-11-22] MEDS ORDERED: fentaNYL 100 MCG/2 ML SDV ONE (09:37)
[2019-11-22] MEDS ORDERED: Sodium Bicarbonate 4.2% 2.5 MEQ/5 ML SDV ONE (09:38)
--- NOTE | 2019-11-22 10:01 | PCM.SN ---
- Free Text/Narrative Note: Intrathecal, Sitting position, sterile prep and drape. 1% lidocaine w bicarb for skinwheal to L2 L3 interspace, introducer, 24 ga pencan x 1. Pos CSF, neg heme, neg parasthesia. 20 mcg pf sufenta, 30 mcg pf fentanyl, 0.4 ml pf ns and 6 mg of 0.75% pf bupivacaine injected after CSF aspiration. Pt to L lateral position. Procedure time 3339 to 1000
--- NOTE | 2019-11-22 12:18 | PCM.DEL ---
L & D Note - General Info Date of Service: 11/22/19 (Time of Delivery: 1121) Mother's Due Date: 11/22/19 (40w0d) - Delivery Note Labor: Spontaneous, Augmented by Oxytocin Delivery Outcome: Livebirth Infant Delivery Method: Spontaneous Vaginal Delivery-Single Infant Delivery Mode: Spontaneous Presentation: Right Occiput Anterior (ARTUR) Nuchal Cord: None Anesthesia Type: Intrathecal Amniotic Fluid Description: Clear Episiotomy Type: None Laceration: None Placenta: Intact, Spontaneous Cord: 3 Vessels Estimated Blood Loss: 200 (minimal) Resuscitation Needed: No : Bulb Syringe, Stimulated Provider: Ivet Rowland Score 1 min: 9 Score 5 min: 9 Second Stage Interventions: Reports: Encouragement Given, Laboring Down, Pushing Effectively, Pushing, Feet in Foot Rests Delivery Comments (Free Text/Narrative):: Jelena was feeling more pressure, and early decels noted with cxns. Intrathecal working well and not feeling pain with cxns. pushed effectively and vertex . set up for delivery. vertex delivered, with one contraction of pushing, and hand noted at neck. rest of baby delivered easily with strong cry at . baby girl delivered to mother's chest for immediate skin to skin contact and nursing. cord doubly clamped and cut by me. 3VC, cord blood sample obtained. perineum intact. placenta delivered easily and is complete/intact with central insertion. pitocin infusing per protocol fundus firm. EBL <200 no complications. APGARs 9 & 9 wieght: 3200g/ 7lb 1oz. mom and baby doing well. routine and nursery orders and cares. all questions answered family happy with care and plan. b - General Info Date of Service: 11/22/19 (40w0d) - Review of Systems General: Reports: No Symptoms HEENT: Reports: No Symptoms Pulmonary: Reports: No Symptoms Cardiovascular: Reports: No Symptoms Gastrointestinal: Reports: No Symptoms Genitourinary: Reports: No Symptoms Musculoskeletal: Reports: No Symptoms Skin: Reports: No Symptoms Neurological: Reports: No Symptoms Psychiatric: Reports: No Symptoms - Patient Data Vitals - Most Recent: Last Vital Signs Temp 98.7 F 11/22/19 00:30 Pulse 90 11/22/19 00:30 Resp 16 11/22/19 00:30 BP 113/63 11/22/19 00:30 Pulse Ox Weight - Most Recent: 157 lb Lab Results Last 24 Hours: Laboratory Results - last 24 hr 11/22/19 Range/Units 08:55 WBC 10.7 H (5.0-10.0) 10^3/uL RBC 3.79 L (4.2-5.4) 10^6/uL Hgb 11.8 L (12.0-16.0) g/dL Hct 34.2 L (37.0-47.0) % MCV 90.2 (80-100) fL MCH 31.1 (27.0-34.0) pg MCHC 34.5 (33.0-35.0) g/dL Plt Count 239 (150-450) 10^3/uL Med Orders - Current: Current Medications Acetaminophen (Tylenol) 650 mg PO Q4H PRN PRN Reason: Pain (Mild 1-3) and fever Carboprost Tromethamine (Hemabate Ds) 250 mcg IM ASDIRECTED PRN PRN Reason: HEMORRHAGE Hydroxyzine HCl (Atarax) 50 mg PO BEDTIME PRN PRN Reason: Sleep Lactated Ringer's (Ringers, Lactated) 1,000 mls @ 125 mls/hr IV ASDIRECTED CAPO Last Admin: 11/22/19 11:01 Dose: 999 mls/hr Oxytocin/Sodium Chloride (Pitocin In Ns 30 Unit/500 Ml) 30 unit in 500 mls @ 2 mls/hr IV TITRATE CAPO; Protocol Tranexamic Acid 1,000 mg/ (Sodium Chloride) 110 mls @ 660 mls/hr IV ONETIME PRN PRN Reason: Bleeding Lidocaine HCl (Xylocaine-Mpf 1%) 30 ml INJECT ASDIRECTED PRN PRN Reason: Perineal Repair Methylergonovine Maleate (Methergine) 0.2 mg IM ASDIRECTED PRN PRN Reason: Hemorrhage Misoprostol (Cytotec) 800 mcg RECTAL ASDIRECTED PRN PRN Reason: Hemorrhage Ondansetron HCl (Zofran) 4 mg IVPUSH Q4H PRN PRN Reason: Nausea/Vomiting Last Admin: 11/22/19 09:36 Dose: 4 mg Sodium Chloride (Saline Flush) 10 ml FLUSH ASDIRECTED PRN PRN Reason: Keep Vein Open Discontinued Medications Fentanyl (Sublimaze) Confirm Administered Dose 100 mcg .ROUTE .STK-MED ONE Stop: 11/22/19 09:38 Last Admin: 11/22/19 10:53 Dose: Not Given Lactated Ringer's (Ringers, Lactated) 1,000 mls @ 500 mls/hr IV BOLUS ONE Stop: 11/21/19 23:03 Sodium Bicarbonate (Sodium Bicarbonate 4.2%) Confirm Administered Dose 2.5 meq .ROUTE .STK-MED ONE Stop: 11/22/19 09:39 Last Admin: 11/22/19 10:53 Dose: Not Given Sufentanil Citrate (Sufenta) Confirm Administered Dose 50 mcg .ROUTE .STK-MED ONE Stop: 11/22/19 09:39 Last Admin: 11/22/19 10:53 Dose: Not Given - Problem List & Annotations (1) Term SNOMED Code(s): 36983681 Code(s): Z34.90 - ENCNTR FOR SUPRVSN OF NORMAL , UNSP, UNSP TRIMESTER Status: Acute Current Visit: Yes (2) Labor established SNOMED Code(s): 68140081 Code(s): PJQ8727 - Status: Acute Current Visit: Yes (3) Group B Streptococcus not isolated SNOMED Code(s): 737435597 Code(s): EPC2283 - Status: Acute Current Visit: Yes (4) Blood type A- SNOMED Code(s): 120787603 Code(s): Z67.11 - TYPE A BLOOD, RH NEGATIVE Status: Acute Current Visit: No (5) Rubella immune SNOMED Code(s): 777699150 Code(s): Z78.9 - OTHER SPECIFIED HEALTH STATUS Status: Acute Current Visit: No (6) History of chicken pox SNOMED Code(s): 456488099 Code(s): Z86.19 - PERSONAL HISTORY OF OTHER INFECTIOUS AND PARASITIC DISEASES Status: Acute Current Visit: No (7) Mother currently breast-feeding SNOMED Code(s): 626070952 Code(s): MNC8053 - Status: Acute Current Visit: No (8) SNOMED Code(s): 31122730 Code(s): Z33.1 - STATE, INCIDENTAL Status: Acute Current Visit: No Qualifiers: Weeks of gestation: 39 weeks Qualified Code(s): Z3A.39 - 39 weeks gestation of (9) Vaginal delivery SNOMED Code(s): 900051706 Code(s): O80 - ENCOUNTER FOR FULL-TERM UNCOMPLICATED DELIVERY Status: Acute Current Visit: No - Problem List Review Problem List Initiated/Reviewed/Updated: Yes - My Orders Last 24 Hours: My Active Orders 11/21/19 21:04 Acetaminophen [Tylenol] 650 mg PO Q4H PRN Carboprost Tromethamine [Hemabate DS] 250 mcg IM ASDIRECTED PRN Lidocaine 1% [Xylocaine-MPF 1%] 30 ml INJECT ASDIRECTED PRN Methylergonovine [Methergine] 0.2 mg IM ASDIRECTED PRN Ondansetron [Zofran] 4 mg IVPUSH Q4H PRN Sodium Chloride 0.9% [Saline Flush] 10 ml FLUSH ASDIRECTED PRN Tranexamic Acid [Cyklokapron] 1,000 mg Sodium Chloride 0.9% [Normal Saline] 100 ml IV ONETIME miSOPROStoL [Cytotec] 800 mcg RECTAL ASDIRECTED PRN Resuscitation Status Routine 11/21/19 21:05 Patient Status [ADT] Routine Communication Order [RC] ASDIRECTED Notify Provider Vital Signs OB [RC] ASDIRECTED Notify Provider [RC] PRN POC Labs [RC] ASDIRECTED Up ad Shannan [RC] ASDIRECTED Vital Signs [RC] ,20 Saline Lock Insert [OM.PC] Routine 11/21/19 21:08 Pump Management, Intrathecal [RC] ASDIRECTED 11/21/19 21:15 Lactated Ringers [Ringers, Lactated] 1,000 ml IV ASDIRECTED Oxytocin/Normal Saline [Pitocin in NS 30 UNIT/500 ML] 30 unit in 500 ml IV TITRATE 11/21/19 22:27 hydrOXYzine HCL [Atarax] 50 mg PO BEDTIME PRN - Plan Plan:: Assessment: 29yo WF @ 39w6d labor established GBS negative Rubella immune A negative blood type reactive NST Plan: admit monitor closely Pt planning intrathecal when in more active labor. all questions answered. anticipate vaginal delivery. plans to breast feed and room in as much as possible. hmb Delivery: over intact perineum @ 1121 on 11-22-2019 viable female 7lb 1oz/ 3200g APGARs 9 & 9 immediately to mother's chest for skin to skin contact and nursing. EBL <200 hmb
[2019-11-22] MEDS ORDERED: Zolpidem 5 MG Tab PO PRN (12:23)
[2019-11-22] MEDS ORDERED: Simethicone 80 MG Tab.Chew PO PRN (12:23)
[2019-11-22] MEDS ORDERED: Benzocaine/Menthol 20%-0.5% Spray 56 GM Canister TOP PRN (12:23)
[2019-11-22] MEDS ORDERED: Oxytocin/Normal Saline 30 UNIT/500 ML BAG IV SCH (14:00)
[2019-11-22] MEDS ORDERED: Sodium Chloride 0.9% 10 ML Syringe IV ONE (14:59)
[2019-11-22] MEDS ORDERED: fentaNYL 100 MCG/2 ML SDV IV ONE (14:59)
[2019-11-22] MEDS ORDERED: Sodium Bicarbonate 4.2% 2.5 MEQ/5 ML SDV IV ONE (14:59)
[2019-11-22] MEDS ORDERED: Lidocaine 1% 30 ML SDV INJECT ONE (14:59)
[2019-11-22] MEDS: Ibuprofen 800 MG Tab PO PRN ×2 (16:09→23:29)
[2019-11-22] MEDS: Docusate Sodium 100 MG Cap PO PRN (21:22)
[2019-11-22] MEDS: Acetaminophen 325 MG Tab PO PRN (21:23)
[2019-11-23] MEDS: Acetaminophen 325 MG Tab PO PRN ×2 (06:48→12:32)
[2019-11-23] MEDS: Ibuprofen 800 MG Tab PO PRN (08:46)
[2019-11-23] MEDS: Docusate Sodium 100 MG Cap PO PRN (08:49)
[2019-11-23] MEDS ORDERED: Prenatal Multivitamin with Calcium/Folic Acid/Iron Tab PO SCH (09:00)
[2019-11-23 09:32] VITALS: BP 107/50; PULSE 70
--- NOTE | 2019-11-23 14:17 | PCM.DCSUM1 ---
Discharge Summary - Hospital Course Free Text/Narrative:: Jelena is a delightful 29yo G4 now P4 who presented in early labor with cervical change and was subsequently admitted. @ 40 weeks gestation, her cervix had dilated to 7+cm, and a bulging BOW noted, AROM carried out with return of clear fluid. Contractions increased and she requested intrathecal, which was placed ithout difficulty. low dose pitocin started and increased to 4, with good labor/contraction pattern developing. she went on to deliver a viable female over intact perineum wiwthout complication. baby to mom's chest. apgars 9 & 9 weight 3200g/7lb 1oz EBL < 200cc nursing. HPI Initial Comments: as above. Brief History: as above. see notes in EPIC and episode. admission H&P and delivery note. Diagnosis: Stroke: No - Discharge Data Discharge Date: 11/23/19 (discharge day, PPD #1) Discharge Disposition: Home, Self-Care 01 Condition: Good - Referral to Home Health Primary Care Physician: Ivet Rowland MD - Discharge Diagnosis/Problem(s) (1) Term SNOMED Code(s): 31134479 ICD Code: Z34.90 - ENCNTR FOR SUPRVSN OF NORMAL , UNSP, UNSP TRIMESTER Status: Acute (2) Labor established SNOMED Code(s): 19744628 ICD Code: [id number] - Status: Acute (3) Group B Streptococcus not isolated SNOMED Code(s): 683136433 ICD Code: [id number] - Status: Acute (4) Blood type A- SNOMED Code(s): 158798421 ICD Code: Z67.11 - TYPE A BLOOD, RH NEGATIVE Status: Acute (5) Rubella immune SNOMED Code(s): 350672006 ICD Code: Z78.9 - OTHER SPECIFIED HEALTH STATUS Status: Acute (6) History of chicken pox SNOMED Code(s): 091644396 ICD Code: Z86.19 - PERSONAL HISTORY OF OTHER INFECTIOUS AND PARASITIC DISEASES Status: Acute (7) Mother currently breast-feeding SNOMED Code(s): 128012940 ICD Code: THX0014 - Status: Acute (8) SNOMED Code(s): 90812336 ICD Code: Z33.1 - STATE, INCIDENTAL Status: Acute Qualifiers: Weeks of gestation: 39 weeks Qualified Code(s): Z3A.39 - 39 weeks gestation of (9) Vaginal delivery SNOMED Code(s): 126227516 ICD Code: O80 - ENCOUNTER FOR FULL-TERM UNCOMPLICATED DELIVERY Status: Acute - Patient Summary/Data Consults: Consultations 11/22/19 12:23 Consult to Magnetometer Operator [CONS] Routine Hospital Course: course uneventful. A negative blood type, and baby's cord blood was O+, so Jelena received RhoGam high dose. Hgb >12 on admit, and minimal EBL with delivery, therefore hgb not repeated. . fundus firm, flow minimal. cramping with nursing. afebrile, VSS eating, voiding, ambulating well. Requesting discharge at 24 hours. Ready to go home. routine orders and instructions. follow up for 6 week check and sooner prn. hmb - Patient Instructions Diet: Usual Diet as Tolerated Activity: As Tolerated Driving: May Drive Today Showering/Bathing: May Shower Notify Provider of: Fever, Increased Pain, Swelling and Redness, Drainage, Nausea and/or Vomiting - Discharge Plan *PRESCRIPTION DRUG MONITORING PROGRAM REVIEWED*: Not Applicable *COPY OF PRESCRIPTION DRUG MONITORING REPORT IN PATIENT PASTOR: Not Applicable Home Medications: Home Meds Ferrous Sulfate [Iron] 325 mg PO DAILY 11/20/15 [History] Pnv95/Iron Fum/Folic Acid [ [place]] 1 tab PO DAILY 11/20/15 [History] Patient Handouts: Home Care Instructions for Mom - Discharge Summary/Plan Comment DC Time >30 min.: No - General Info Admission Dx/Problem (Free Text: Patient Status Order with Admit Dx/Problem 11/21/19 21:05 Patient Status [ADT] Routine Admission Diagnosis/Problem Admission Diagnosis/Problem Labor established Functional Status: Reports: Pain Controlled - Review of Systems General: Reports: No Symptoms HEENT: Reports: No Symptoms Pulmonary: Reports: No Symptoms Cardiovascular: Reports: No Symptoms Gastrointestinal: Reports: No Symptoms Genitourinary: Reports: No Symptoms Musculoskeletal: Reports: No Symptoms Skin: Reports: No Symptoms Neurological: Reports: No Symptoms Psychiatric: Reports: No Symptoms - Patient Data Vitals - Most Recent: Last Vital Signs Temp 98.5 F 11/23/19 08:00 Pulse 70 11/23/19 08:00 Resp 16 11/23/19 08:00 BP 107/50 L 11/23/19 08:00 Pulse Ox 98 11/23/19 08:00 Weight - Most Recent: 157 lb I&O - Last 24 hours: Intake & Output 11/22/19 11/23/19 11/23/19 22:59 06:59 14:59 Intake Total 1 Output Total 400 Balance -400 1 Lab Results - Last 24 hrs: Laboratory Results - last 24 hr 11/22/19 Range/Units 19:10 Blood Type A NEGATIVE Gel Antibody Screen Positive Rhogam Indicated Yes, baby rh pos H Med Orders - Current: Current Medications Acetaminophen (Tylenol) 650 mg PO Q4H PRN PRN Reason: Pain (Mild 1-3) and fever Last Admin: 11/23/19 12:32 Dose: 650 mg Benzocaine/Menthol (Dermoplast Pain Relief [place]) 0 gm TOP Q4H PRN PRN Reason: Perineal comfort measures Last Admin: 11/22/19 18:40 Dose: 1 spray Carboprost Tromethamine (Hemabate Ds) 250 mcg IM ASDIRECTED PRN PRN Reason: HEMORRHAGE Docusate Sodium (Colace) 100 mg PO BID PRN PRN Reason: Constipation Last Admin: 11/23/19 08:49 Dose: 100 mg Hydroxyzine HCl (Atarax) 50 mg PO BEDTIME PRN PRN Reason: Sleep Lactated Ringer's (Ringers, Lactated) 1,000 mls @ 125 mls/hr IV ASDIRECTED CAPO Last Admin: 11/22/19 11:01 Dose: 999 mls/hr Tranexamic Acid 1,000 mg/ (Sodium Chloride) 110 mls @ 660 mls/hr IV ONETIME PRN PRN Reason: Bleeding Oxytocin/Sodium Chloride (Pitocin In Ns 30 Unit/500 Ml) 30 unit in 500 mls @ 2 mls/hr IV TITRATE CAPO; Protocol Last Titration: 11/22/19 13:30 Dose: 0 mls/hr Ibuprofen (Motrin) 800 mg PO Q8H PRN PRN Reason: Mild Pain or Fever Last Admin: 11/23/19 08:46 Dose: 800 mg Lidocaine HCl (Xylocaine-Mpf 1%) 30 ml INJECT ASDIRECTED PRN PRN Reason: Perineal Repair Methylergonovine Maleate (Methergine) 0.2 mg IM ASDIRECTED PRN PRN Reason: Hemorrhage Misoprostol (Cytotec) 800 mcg RECTAL ASDIRECTED PRN PRN Reason: Hemorrhage Ondansetron HCl (Zofran) 4 mg IVPUSH Q4H PRN PRN Reason: Nausea/Vomiting Last Admin: 11/22/19 09:36 Dose: 4 mg Prenat Multivit/[place]/Iron/Folic Ac ( Plus Iron) 1 each PO DAILY CAPO Last Admin: 11/23/19 08:46 Dose: 1 each Simethicone (Simethicone) 80 mg PO Q4H PRN PRN Reason: Gas Sodium Chloride (Saline Flush) 10 ml FLUSH ASDIRECTED PRN PRN Reason: Keep Vein Open Zolpidem Tartrate (Ambien) 5 mg PO BEDTIME PRN PRN Reason: Insomnia Discontinued Medications Fentanyl (Sublimaze) Confirm Administered Dose 100 mcg .ROUTE .STK-MED ONE Stop: 11/22/19 09:38 Last Admin: 11/22/19 10:53 Dose: Not Given Lactated Ringer's (Ringers, Lactated) 1,000 mls @ 500 mls/hr IV BOLUS ONE Stop: 11/21/19 23:03 Last Admin: 11/22/19 16:38 Dose: Not Given Oxytocin/Sodium Chloride (Pitocin In Ns 30 Unit/500 Ml) 30 unit in 500 mls @ 2 mls/hr IV TITRATE CAPO; Protocol Sodium Bicarbonate (Sodium Bicarbonate 4.2%) Confirm Administered Dose 2.5 meq .ROUTE .ST[facility] Labs-MED ONE Stop: 11/22/19 09:39 Last Admin: 11/22/19 10:53 Dose: Not Given Sufentanil Citrate (Sufenta) Confirm Administered Dose 50 mcg .ROUTE .STK-MED ONE Stop: 11/22/19 09:39 Last Admin: 11/22/19 10:53 Dose: Not Given - Exam General: Reports: Alert, Oriented HEENT: Reports: Pupils Equal, Pupils Reactive, EOMI, Mucous Membr. Moist/[place] Neck: Reports: Supple Lungs: Reports: Clear to Auscultation, Normal Respiratory Effort Cardiovascular: Reports: Regular Rate, Regular Rhythm GI/Abdominal Exam: Normal Bowel Sounds, Soft, Non-Tender, No Organomegaly, No Distention, No Abnormal Bruit, No Mass, Pelvis Stable (Female) Exam: Normal External Exam, Normal Speculum Exam, Normal Bimanual Exam Rectal (Female) Exam: Normal Exam, Normal Rectal Tone Back Exam: Reports: Normal Inspection, Full Range of Motion Extremities: Normal Inspection, Normal Range of Motion, Non-Tender, No Pedal Edema, Normal Capillary Refill Skin: Reports: Warm, Dry, Intact Wound/Incisions: Reports: Healing Well Neurological: Reports: No New Focal Deficit Psy/Mental Status: Reports: Alert, Normal Affect, Normal Mood
== END 2019-11-23 15:00 | disposition home or self-care (01) | DRG 560 ==
LOC: DL.OB 11:21 → EDSTATUS 19:24 → PREINTOOBSV 19:31 → EDSTATUS 19:46 → DL.OB 19:51 → OBSVTOIN 11-22 11:21
PROVIDERS: ADMIT Family Medicine; ATTEND Family Medicine
PROC: 10E0XZZ Delivery of Products of Conception, External Approach (ICD-10-PCS; principal; 2019-11-22)
PROC: 10907ZC Drainage of Amniotic Fluid, Therapeutic from Products of Conception, Via Natural or Artificial Opening (ICD-10-PCS; 2019-11-22)
PROC: 3E0234Z Introduction of Serum, Toxoid and Vaccine into Muscle, Percutaneous Approach (ICD-10-PCS; 2019-11-22)
PROC: 10907ZC Drainage of Amniotic Fluid, Therapeutic from Products of Conception, Via Natural or Artificial Opening (ICD-10-PCS; 2019-11-22)
DX: O48.0 Post-term pregnancy (principal); O26.893 Other specified pregnancy related conditions, third trimester; O76 Abnormality in fetal heart rate and rhythm complicating labor and delivery; O99.02 Anemia complicating childbirth; D64.9 Anemia, unspecified; Z98.890 Other specified postprocedural states; Z67.11 Type A blood, Rh negative; Z3A.40 40 weeks gestation of pregnancy; Z79.899 Other long term (current) drug therapy; Z37.0 Single live birth
CPT/HCPCS: 36415; 59409; 85027; 85461; 86850; 86870; 86900; 86901; A9270-GY; J2001; J2405; J2590; J2790; J3010; J7120

== ENCOUNTER 2022-10-29 16:28 | Inpatient (IN) | payer OTHER ==
[2022-10-29] MEDS: Lactated Ringers 1,000 ML IV SCH ×2 (17:21→21:56)
[2022-10-29] MEDS ORDERED: Carboprost Tromethamine 250 MCG/1 ML Amp IM PRN (17:31)
[2022-10-29] MEDS ORDERED: Misoprostol 400 MCG (4 X 100 MCG TAB) RECTAL PRN (17:31)
[2022-10-29] MEDS ORDERED: Acetaminophen 325 MG Tab PO PRN (17:31)
[2022-10-29] MEDS ORDERED: Lactated Ringers 1,000 ML IV ONE (17:31)
[2022-10-29] MEDS ORDERED: Methylergonovine 0.2 MG/1 ML Amp IM PRN (17:31)
[2022-10-29] MEDS ORDERED: Sodium Chloride 0.9% 10 ML Syringe FLUSH PRN (17:31)
[2022-10-29] MEDS ORDERED: Lidocaine 1% 30 ML SDV INJECT PRN (17:31)
[2022-10-29] MEDS ORDERED: Tranexamic Acid 1,000 MG in Sodium Chloride 0.9% 100 ML IV PRN (17:31)
[2022-10-29] MEDS ORDERED: EPINEPHrine 1 MG/ML SDV ONE (20:44)
[2022-10-29] MEDS ORDERED: Dexmedetomidine 200 MCG/2 ML SDV ONE (20:44)
[2022-10-29] MEDS: Ondansetron 4 MG/2 ML SDV IVPUSH PRN (20:50)
[2022-10-29] MEDS: Oxytocin/Normal Saline 30 UNIT/500 ML BAG IV SCH (21:28)
[2022-10-30] MEDS: Lactated Ringers 1,000 ML IV SCH ×2 (03:00→04:30)
[2022-10-30] MEDS ORDERED: Dexmedetomidine 200 MCG/2 ML SDV ONE (03:32)
[2022-10-30] MEDS ORDERED: EPINEPHrine 1 MG/ML SDV ONE (03:32)
[2022-10-30] MEDS ORDERED: Sodium Bicarbonate 4.2% 2.5 MEQ/5 ML SDV ONE (03:44)
[2022-10-30] MEDS: Ondansetron 4 MG/2 ML SDV IVPUSH PRN (03:52)
[2022-10-30] MEDS ORDERED: Simethicone 80 MG Tab.Chew PO PRN (06:24)
[2022-10-30] MEDS ORDERED: Benzocaine/Menthol 20%-0.5% Spray 78 GM Cannister TOP PRN (06:24)
[2022-10-30] MEDS ORDERED: Acetaminophen 325 MG Tab PO PRN (06:24)
[2022-10-30] MEDS ORDERED: Docusate Sodium 100 MG Cap PO PRN (06:24)
[2022-10-30] MEDS ORDERED: Oxytocin 10 Units/1 ML SDV IM PRN (06:24)
[2022-10-30] MEDS ORDERED: Tranexamic Acid 1,000 MG/10 ML Vial ONE (06:31)
[2022-10-30] MEDS: Oxytocin/Normal Saline 30 UNIT/500 ML BAG IV SCH (07:52)
[2022-10-30] MEDS ORDERED: Prenatal Multivitamin with Calcium/Folic Acid/Iron Tab PO SCH (09:00)
[2022-10-30] MEDS ORDERED: Witch Hazel Medicated Pads 100/Jar TOP PRN (11:34)
[2022-10-30] MEDS: Ibuprofen 800 MG Tab PO PRN (16:37)
[2022-10-31] MEDS: Ibuprofen 800 MG Tab PO PRN (04:52)
[2022-10-31 09:45] VITALS: BP 119/67; PULSE 75
== END 2022-10-31 11:07 | disposition home or self-care (01) | DRG 807 ==
LOC: DL.OBCHECK 16:28 → DL.OB 17:31 → OBSVTOIN 10-30 06:08
PROVIDERS: ADMIT Family Medicine; ATTEND Family Medicine
PROC: 3E0R3BZ Introduction of Anesthetic Agent into Spinal Canal, Percutaneous Approach (ICD-10-PCS; principal; 2022-10-30)
PROC: 10E0XZZ Delivery of Products of Conception, External Approach (ICD-10-PCS; 2022-10-30)
PROC: 00HU33Z Insertion of Infusion Device into Spinal Canal, Percutaneous Approach (ICD-10-PCS; 2022-10-30)
PROC: 0HQ9XZZ Repair Perineum Skin, External Approach (ICD-10-PCS; 2022-10-30)
DX: O36.63X0 Maternal care for excessive fetal growth, third trimester, not applicable or unspecified (principal); Z37.0 Single live birth; O99.02 Anemia complicating childbirth; D64.9 Anemia, unspecified; Z20.822 Contact with and (suspected) exposure to COVID-19; Z3A.38 38 weeks gestation of pregnancy; O70.0 First degree perineal laceration during delivery
CPT/HCPCS: 01967; 36415; 59409; 85027; 85461; 86850; 86870; 86900; 86901; A9270-GY; J2405; J2590; J2790; J3490; J7120; U0002